=== PATIENT | female | born 1940 | race African-American/Black ===

== ENCOUNTER 2017-02-02 19:08 | Emergency (ER) | payer OTHER ==
[~2017-02-02] VITALS: Ht 165.1 cm; Wt 117.0 kg
[2017-02-02] MEDS ORDERED: KETOROLAC 60MG/2ML VIAL IM ONE (21:45)
[2017-02-02] MEDS ORDERED: AMLODIPINE 5MG TABLET PO ONE (21:45)
[2017-02-02 22:10] VITALS: BP 167/91
== END 2017-02-02 23:57 | disposition home or self-care (01) ==
LOC: ER 21:14
DX: M19.90 Unspecified osteoarthritis, unspecified site (principal); I10 Essential (primary) hypertension
CPT/HCPCS: 96372; 99283; J1885

== ENCOUNTER 2018-04-20 20:28 | Emergency (ER) | payer OTHER ==
[~2018-04-20] VITALS: Ht 165.1 cm; Wt 119.0 kg
[2018-04-20] MEDS ORDERED: KETOROLAC 60MG/2ML VIAL IM ONE (21:15)
[2018-04-20] MEDS ORDERED: ACETAMINOPHEN WITH CODEINE 300/30MG TABLET PO ONE (21:15)
[2018-04-20 23:16] VITALS: BP 118/60
== END 2018-04-21 02:20 | disposition home or self-care (01) ==
LOC: ER 20:30
DX: M25.512 Pain in left shoulder (principal); M19.012 Primary osteoarthritis, left shoulder; I10 Essential (primary) hypertension; Z90.710 Acquired absence of both cervix and uterus
CPT/HCPCS: 73030; 93005; 96372; 99284; J1885

== ENCOUNTER 2019-04-21 11:08 | Emergency (ER) | payer OTHER ==
[~2019-04-21] VITALS: Ht 165.1 cm; Wt 125.5 kg
[2019-04-21] MEDS ORDERED: HYDROCODONE/ACETAMINOPHEN 5/325MG TABLET PO ONE (12:00)
[2019-04-21] MEDS ORDERED: IBUPROFEN 800MG TABLET PO ONE (12:00)
[2019-04-21 14:41] LABS: CLARITY URINE CLOUDY (CLEAR); COLOR URINE YELLOW (YELLOW); KETONES URINE NEGATIVE (NEGATIVE); LEUKOCYTE ESTERASE URINE NEGATIVE (NEGATIVE); NITRITE URINE NEGATIVE (NEGATIVE); OCCULT BLOOD URINE NEGATIVE (NEGATIVE); PH URINE 5.5 (4.5-8.0); PROTEIN URINE NEGATIVE (NEGATIVE); SPECIFIC GRAVITY URINE 1.019 (1.005-1.030); UROBILINOGEN URINE 0.2 E.U./dL (0.2-1.0)
[2019-04-21 15:33] VITALS: BP 164/78
== END 2019-04-21 15:37 | disposition home or self-care (01) ==
LOC: ER 11:08
DX: M54.5 Low back pain (principal); R10.9 Unspecified abdominal pain; I10 Essential (primary) hypertension; Z90.710 Acquired absence of both cervix and uterus
CPT/HCPCS: 99283

== ENCOUNTER 2019-05-08 14:45 | Emergency (ER) | payer OTHER ==
[~2019-05-08] VITALS: Ht 167.6 cm; Wt 118.0 kg
[2019-05-08] MEDS ORDERED: OXYCODONE HCL/ACETAMINOPHEN 5/325MG TABLET PO ONE (17:30)
[2019-05-08 18:04] VITALS: BP 147/76
== END 2019-05-08 18:08 | disposition home or self-care (01) ==
LOC: ER 14:45
DX: M19.90 Unspecified osteoarthritis, unspecified site (principal); I10 Essential (primary) hypertension; Z90.710 Acquired absence of both cervix and uterus
CPT/HCPCS: 73560; 73600; 99283

== ENCOUNTER 2019-07-15 16:21 | Emergency (ER) | payer OTHER ==
[~2019-07-15] VITALS: Ht 165.1 cm; Wt 121.0 kg
[2019-07-15] MEDS: MORPHINE SULFATE 4 MG/ML CPJ (NOT FOR IM USE) IV STA (18:56)
[2019-07-15] MEDS: ONDANSETRON HCL 4MG/2ML INJ IV STA (18:56)
[2019-07-15] MEDS: SODIUM CHLORIDE 0.9% 1,000 ML IV ONE (18:56)
[2019-07-15 19:22] LABS: BASOPHILS % 0.7 % (0.0-2.0); EOSINOPHILS % 0.1 % (0.0-5.0); HEMATOCRIT. 41.4 % (36.0-48.0); HEMOGLOBIN. 13.3 g/dL (12.0-16.0); LYMPHOCYTES % 11.2 % (20.0-50.0); MEAN CORPUSCULAR HEMOGLOBIN 26.2 pg (28.0-32.0); MEAN CORPUSCULAR VOLUME 81.7 fL (81.0-99.0); MEAN PLATELET VOLUME 8.8 fl (7.4-10.4); PLATELET 276 x1000/uL (130-400); RED BLOOD CELL COUNT 5.06 mill/uL (4.2-5.4); RED CELL DISTRIBUTION WIDTH 15.5 % (11.6-14.6)
[2019-07-15 19:26] LABS: CHLORIDE 101 mEq/L (98-107)
[2019-07-15 20:02] LABS: CLARITY URINE CLOUDY (CLEAR); COLOR URINE DARK YELLOW (YELLOW); KETONES URINE TRACE (NEGATIVE); LEUKOCYTE ESTERASE URINE TRACE (NEGATIVE); NITRITE URINE NEGATIVE (NEGATIVE); OCCULT BLOOD URINE NEGATIVE (NEGATIVE); PROTEIN URINE 1+ (NEGATIVE); SPECIFIC GRAVITY URINE 1.023 (1.005-1.030)
[2019-07-15] MEDS: POTASSIUM CHLORIDE 20MEQ TABLET SR PO ONE (22:42)
[2019-07-15] MEDS: CEFTRIAXONE 1 G PREMIX 50 ML IV ONE (22:42)
[2019-07-15 23:51] VITALS: BP 145/72
== END 2019-07-16 00:38 | disposition home or self-care (01) ==
LOC: ER 16:21
DX: N10 Acute pyelonephritis (principal); M19.90 Unspecified osteoarthritis, unspecified site; I10 Essential (primary) hypertension; E87.6 Hypokalemia; N28.9 Disorder of kidney and ureter, unspecified; Z90.710 Acquired absence of both cervix and uterus
CPT/HCPCS: 36415; 71045; 72100; 73502; 80053; 81003; 85025; 87086; 93005; 96365; 96375; 99284; J0696; J2270; J2405; J7030

== ENCOUNTER 2019-08-01 01:04 | Emergency (ER) | payer OTHER ==
[~2019-08-01] VITALS: Ht 167.6 cm; Wt 143.0 kg
[2019-08-01] MEDS ORDERED: KETOROLAC 60MG/2ML VIAL IM ONE (02:15)
[2019-08-01] MEDS ORDERED: HYDROCODONE/ACETAMINOPHEN 10/325MG TABLET PO ONE (02:15)
[2019-08-01 02:45] VITALS: BP 163/89
== END 2019-08-01 04:06 | disposition home or self-care (01) ==
LOC: ER 01:04
DX: M19.90 Unspecified osteoarthritis, unspecified site (principal); G89.29 Other chronic pain; I10 Essential (primary) hypertension; M10.9 Gout, unspecified; Z90.710 Acquired absence of both cervix and uterus
CPT/HCPCS: 96372; 99283; J1885

== ENCOUNTER 2019-09-11 01:23 | Emergency (ER) | payer OTHER ==
[~2019-09-11] VITALS: Ht 167.6 cm; Wt 127.5 kg
[2019-09-11] MEDS ORDERED: KETOROLAC 30MG/ML VIAL IV STA (03:05)
[2019-09-11] MEDS ORDERED: ONDANSETRON HCL 4MG/2ML INJ IV STA (03:05)
[2019-09-11 03:35] LABS: BASOPHILS % 1.1 % (0.0-2.0); EOSINOPHILS % 1.4 % (0.0-5.0); HEMATOCRIT. 40.3 % (36.0-48.0); HEMOGLOBIN. 13.1 g/dL (12.0-16.0); LYMPHOCYTES % 16.5 % (20.0-50.0); MEAN CORPUSCULAR HEMOGLOBIN 26.6 pg (28.0-32.0); MEAN CORPUSCULAR VOLUME 82.1 fL (81.0-99.0); MEAN PLATELET VOLUME 8.2 fl (7.4-10.4); MONOCYTES % 8.7 % (2.0-8.0); NEUTROPHILS % 72.3 % (40.0-76.0); PLATELET 313 x1000/uL (130-400); RED BLOOD CELL COUNT 4.92 mill/uL (4.2-5.4); RED CELL DISTRIBUTION WIDTH 14.7 % (11.6-14.6)
[2019-09-11 03:46] LABS: CHLORIDE 102 mEq/L (98-107)
[2019-09-11 05:21] VITALS: BP 148/92
== END 2019-09-11 05:23 | disposition home or self-care (01) ==
LOC: ER 01:23
DX: M54.9 Dorsalgia, unspecified (principal); M54.30 Sciatica, unspecified side; K76.89 Other specified diseases of liver; I10 Essential (primary) hypertension; Z78.0 Asymptomatic menopausal state; Z98.51 Tubal ligation status
CPT/HCPCS: 36415; 74176; 80053; 83605; 83690; 85025; 96374; 96375; 99284; J1885; J2405

== ENCOUNTER 2020-08-26 13:22 | Emergency (ER) | payer OTHER, MEDICAID ==
[~2020-08-26] VITALS: Ht 182.9 cm; Wt 137.0 kg
[2020-08-26] MEDS ORDERED: ACETAMINOPHEN 500MG TABLET PO ONE (15:45)
[2020-08-26 17:28] VITALS: BP 162/90
== END 2020-08-26 17:29 | disposition home or self-care (01) ==
LOC: ER 13:22
DX: M54.32 Sciatica, left side (principal); M54.31 Sciatica, right side; G89.29 Other chronic pain; I10 Essential (primary) hypertension; M19.90 Unspecified osteoarthritis, unspecified site; M10.9 Gout, unspecified; Z90.49 Acquired absence of other specified parts of digestive tract; Z98.51 Tubal ligation status
CPT/HCPCS: 72100; 99283

== ENCOUNTER 2020-11-25 00:15 | Inpatient (IN) | payer OTHER, MEDICAID ==
[~2020-11-25] VITALS: Ht 162.6 cm; Wt 140.7 kg
[2020-11-25] VITALS (36 sets, daily range): BP systolic 110–158; BP diastolic 64–98
[2020-11-25] MEDS ORDERED: MORPHINE SULFATE 4 MG/ML CPJ (NOT FOR IM USE) IV STA (00:41)
[2020-11-25] MEDS ORDERED: ONDANSETRON HCL 4MG/2ML INJ IV STA (00:41)
[2020-11-25] MEDS ORDERED: PROPOFOL 10MG/ML 100ML 100 ML IV ONE (00:45)
[2020-11-25 00:47] LABS: BG BASE EXCESS -1.1 mmol/L (-2.0-2.0); BG CARBOXYHEMOGLOBIN 1.1 % (0.5-1.5); BG DEOXYHEMOGLOBIN 0.3 % (0.0-5.0); BG FRACTION INSPIRED OXYGEN 100; BG HCO3 ACT 24.7 mmol/L (22.0-26.0); BG METHEMOGLOBIN 0.3 % (0.0-1.5); BG OXYGEN SATURATION 99.7 % (92.0-98.5); BG OXYHEMOGLOBIN 98.3 % (94.0-97.0); BG PCO2 45.2 mmHg (35.0-45.0); BG PH 7.355 (7.350-7.450); BG PO2 367.9 mmHg (75.0-100.0); BG TOTAL HEMOGLOBIN 12.7 g/dL (12.0-18.0); BG TOTAL RESPIRATORY RATE 20 b/min; BG VENT MODE VENT - AC
[2020-11-25] MEDS ORDERED: NOREPINEPHRINE 8MG/250ML PMX 250 ML IV STA (00:54)
[2020-11-25] MEDS ORDERED: CALCIUM CHLORIDE 1GM/10ML SYR IV ONE (01:00)
[2020-11-25] MEDS ORDERED: SODIUM BICARBONATE 8.4% 1 MEQ/ML 50ML SYR IV ONE ×2 (01:00→09:30)
[2020-11-25] MEDS ORDERED: EPINEPHRINE 0.1MG/ML (1:10,000) 10ML SYR ONE ×2 (01:00→09:30)
[2020-11-25 01:28] LABS: BASOPHILS % 0.8 % (0.0-2.0); CHLORIDE 101 mEq/L (98-107); EOSINOPHILS % 0.1 % (0.0-5.0); HEMATOCRIT. 38.9 % (36.0-48.0); HEMOGLOBIN. 11.6 g/dL (12.0-16.0); LYMPHOCYTES % 36.1 % (20.0-50.0); MEAN CORPUSCULAR HEMOGLOBIN 25.3 pg (28.0-32.0); MEAN CORPUSCULAR VOLUME 84.7 fL (81.0-99.0); MEAN PLATELET VOLUME 8.8 fl (7.4-10.4); MONOCYTES % 8.5 % (2.0-8.0); NEUTROPHILS % 54.5 % (40.0-76.0); PLATELET 188 x1000/uL (130-400); RED BLOOD CELL COUNT 4.59 mill/uL (4.2-5.4); RED CELL DISTRIBUTION WIDTH 16.6 % (11.6-14.6)
[2020-11-25] MEDS: NOREPINEPHRINE 8 MG in DEXTROSE 5% WATER 250 ML IV PRN ×2 (01:36→13:51)
[2020-11-25 01:51] LABS: D-DIMER 3.51 mg/L FEU (<0.50); INR 1.1
[2020-11-25] MEDS ORDERED: DEXTROSE 50% WATER 50ML SYRINGE IV ONE (09:30)
[2020-11-25] MEDS: PROPOFOL 10MG/ML 100ML 100 ML IV NR ×4 (09:51→19:53)
[2020-11-25 10:14] LABS: BG CARBOXYHEMOGLOBIN 0.6 % (0.5-1.5); BG DEOXYHEMOGLOBIN 0.5 % (0.0-5.0); BG FRACTION INSPIRED OXYGEN 100; BG HCO3 ACT 27.5 mmol/L (22.0-26.0); BG OXYGEN SATURATION 99.5 % (92.0-98.5); BG OXYHEMOGLOBIN 98.9 % (94.0-97.0); BG PCO2 33.9 mmHg (35.0-45.0); BG PH 7.527 (7.350-7.450); BG PO2 211.7 mmHg (75.0-100.0); BG SAMPLE SITE RIGHT RADIAL; BG TOTAL HEMOGLOBIN 13.6 g/dL (12.0-18.0); BG VENT MODE VENT - AC
[2020-11-25] MEDS ORDERED: FUROSEMIDE 40MG/4ML VIAL IVP NR (11:00)
[2020-11-25] MEDS: ENOXAPARIN 40MG/0.4ML SYR SUBCUT SCH (13:50)
[2020-11-25] MEDS ORDERED: ONDANSETRON HCL 4MG/2ML INJ IV PRN (14:00)
[2020-11-25] MEDS ORDERED: PROPOFOL 10MG/ML 100ML 100 ML IV PRN (17:30)
[2020-11-25] MEDS ORDERED: PIPERACILLIN/TAZOBACTAM 3.375 G in DEXT 5% WATER 100 ML IV SCH (17:30)
[2020-11-25] MEDS ORDERED: IPRATROPIUM/ALBUTEROL 0.5-3(2.5)MG/3ML NEB HHN PRN (17:30)
[2020-11-25 19:39] LABS: CLARITY URINE CLOUDY (CLEAR); COLOR URINE YELLOW (YELLOW); KETONES URINE NEGATIVE (NEGATIVE); LEUKOCYTE ESTERASE URINE TRACE (NEGATIVE); NITRITE URINE NEGATIVE (NEGATIVE); OCCULT BLOOD URINE 2+ (NEGATIVE); PROTEIN URINE TRACE (NEGATIVE); UROBILINOGEN URINE 0.2 E.U./dL (0.2-1.0)
[2020-11-25] MEDS: IPRATROPIUM/ALBUTEROL 0.5-3(2.5)MG/3ML NEB HHN SCH (19:52)
[2020-11-25] MEDS ORDERED: FENTANYL CITRATE/PF 2,500 MCG in SODIUM CHLORIDE 0.9% 200 ML IV PRN (20:00)
[2020-11-25 20:22] LABS: *AMPHETAMINES SCREEN URINE NEGATIVE (NEGATIVE); *BARBITURATES SCREEN URINE NEGATIVE (NEGATIVE); CANNABINOID URINE SCREEN NEGATIVE (NEGATIVE); METHADONE URINE SCREEN NEGATIVE (NEGATIVE); OPIATES URINE SCREEN PRESUMTIVE POSITIVE (NEGATIVE); PHENCYCLIDINE URINE SCREEN NEGATIVE (NEGATIVE)
[2020-11-25 20:23] LABS: *BENZODIAZEPINES SCREEN URINE NEGATIVE (NEGATIVE); *COCAINE SCREEN URINE NEGATIVE (NEGATIVE)
[2020-11-25] MEDS: PIPERACILLIN/TAZOBACTAM 2.25 G in DEXTROSE 5% WATER 50 ML IV SCH (21:02)
[2020-11-26] VITALS (79 sets, daily range): BP systolic 64–177; BP diastolic 43–106
[2020-11-26] MEDS: IPRATROPIUM/ALBUTEROL 0.5-3(2.5)MG/3ML NEB HHN SCH ×4 (01:42→20:47)
[2020-11-26] MEDS: PIPERACILLIN/TAZOBACTAM 2.25 G in DEXTROSE 5% WATER 50 ML IV SCH ×4 (02:38→20:39)
[2020-11-26] MEDS: PROPOFOL 10MG/ML 100ML 100 ML IV NR (03:56)
[2020-11-26] MEDS: ENOXAPARIN 40MG/0.4ML SYR SUBCUT SCH (08:40)
[2020-11-26 09:06] LABS: BG BASE EXCESS 8.6 mmol/L (-2.0-2.0); BG CARBOXYHEMOGLOBIN 0.7 % (0.5-1.5); BG DEOXYHEMOGLOBIN 10.3 % (0.0-5.0); BG FRACTION INSPIRED OXYGEN 100; BG METHEMOGLOBIN 0.1 % (0.0-1.5); BG OXYGEN SATURATION 89.6 % (92.0-98.5); BG OXYHEMOGLOBIN 88.9 % (94.0-97.0); BG PCO2 39.4 mmHg (35.0-45.0); BG PH 7.527 (7.350-7.450); BG PO2 57.3 mmHg (75.0-100.0); BG SAMPLE SITE RIGHT RADIAL; BG TOTAL HEMOGLOBIN 11.8 g/dL (12.0-18.0); BG VENT MODE VENT - AC
[2020-11-26 09:33] LABS: BASOPHILS % 0.9 % (0.0-2.0); EOSINOPHILS % 0.4 % (0.0-5.0); HEMOGLOBIN. 11.2 g/dL (12.0-16.0); LYMPHOCYTES % 13.6 % (20.0-50.0); MEAN CORPUSCULAR HEMOGLOBIN 25.2 pg (28.0-32.0); MEAN CORPUSCULAR VOLUME 80.9 fL (81.0-99.0); MONOCYTES % 12.5 % (2.0-8.0); NEUTROPHILS % 72.6 % (40.0-76.0); RED BLOOD CELL COUNT 4.45 mill/uL (4.2-5.4); RED CELL DISTRIBUTION WIDTH 16.4 % (11.6-14.6)
[2020-11-26 09:41] LABS: CHLORIDE 103 mEq/L (98-107)
[2020-11-26 11:08] LABS: CREATINE KINASE 158 IU/L (26-192)
[2020-11-26] MEDS ORDERED: ENOXAPARIN 100MG/ML SYR SUBCUT NR (11:30)
[2020-11-26] MEDS: FUROSEMIDE 40MG/4ML VIAL IVP SCH (11:57)
[2020-11-26] MEDS: PROPOFOL 10MG/ML 100ML 100 ML IV PRN ×3 (13:30→22:16)
[2020-11-26] MEDS: NOREPINEPHRINE 8 MG in DEXTROSE 5% WATER 250 ML IV PRN (15:14)
[2020-11-27] VITALS (82 sets, daily range): BP systolic 73–146; BP diastolic 41–98
[2020-11-27] MEDS: PIPERACILLIN/TAZOBACTAM 2.25 G in DEXTROSE 5% WATER 50 ML IV SCH ×4 (01:35→21:08)
[2020-11-27] MEDS: IPRATROPIUM/ALBUTEROL 0.5-3(2.5)MG/3ML NEB HHN SCH ×4 (03:06→20:33)
[2020-11-27] MEDS: PROPOFOL 10MG/ML 100ML 100 ML IV PRN ×3 (05:46→21:13)
[2020-11-27 08:34] LABS: BASOPHILS % 0.7 % (0.0-2.0); EOSINOPHILS % 0.5 % (0.0-5.0); HEMATOCRIT. 38.2 % (36.0-48.0); HEMOGLOBIN. 12.1 g/dL (12.0-16.0); LYMPHOCYTES % 11.9 % (20.0-50.0); MEAN CORPUSCULAR HEMOGLOBIN 25.5 pg (28.0-32.0); MEAN CORPUSCULAR VOLUME 80.5 fL (81.0-99.0); MONOCYTES % 14.4 % (2.0-8.0); NEUTROPHILS % 72.5 % (40.0-76.0); RED BLOOD CELL COUNT 4.74 mill/uL (4.2-5.4); RED CELL DISTRIBUTION WIDTH 16.3 % (11.6-14.6)
[2020-11-27 08:37] LABS: CHLORIDE 100 mEq/L (98-107)
[2020-11-27] MEDS: ENOXAPARIN 150MG/ML SYR SUBCUT SCH (10:06)
[2020-11-27] MEDS: FUROSEMIDE 40MG/4ML VIAL IVP SCH (10:06)
[2020-11-27] MEDS ORDERED: POTASSIUM CHLORIDE 20MEQ/PACKET PO NR (10:15)
[2020-11-27] MEDS ORDERED: PROPOFOL 10MG/ML 100ML 100 ML IV PRN (12:30)
[2020-11-27] MEDS: PHENYLEPHRINE 100 MG in DEXT 5% WATER 240 ML IV PRN (21:10)
[2020-11-28] VITALS (91 sets, daily range): BP systolic 52–161; BP diastolic 40–113
[2020-11-28] MEDS: IPRATROPIUM/ALBUTEROL 0.5-3(2.5)MG/3ML NEB HHN SCH ×4 (00:26→20:54)
[2020-11-28] MEDS: PIPERACILLIN/TAZOBACTAM 2.25 G in DEXTROSE 5% WATER 50 ML IV SCH ×4 (03:28→21:10)
[2020-11-28] MEDS: PROPOFOL 10MG/ML 100ML 100 ML IV PRN (03:35)
[2020-11-28 06:56] LABS: HEMATOCRIT. 38.5 % (36.0-48.0); HEMOGLOBIN. 12.3 g/dL (12.0-16.0); MEAN CORPUSCULAR HEMOGLOBIN 25.7 pg (28.0-32.0); MEAN CORPUSCULAR VOLUME 80.8 fL (81.0-99.0); RED BLOOD CELL COUNT 4.77 mill/uL (4.2-5.4); RED CELL DISTRIBUTION WIDTH 16.6 % (11.6-14.6)
[2020-11-28 06:59] LABS: CHLORIDE 101 mEq/L (98-107)
[2020-11-28 07:12] LABS: PHOSPHORUS 5.6 mg/dL (2.5-4.9)
[2020-11-28] MEDS: FUROSEMIDE 40MG/4ML VIAL IVP SCH (08:28)
[2020-11-28] MEDS: ENOXAPARIN 150MG/ML SYR SUBCUT SCH (08:29)
[2020-11-28] MEDS ORDERED: KCL 20MEQ/100ML PREMIX 100 ML IV SCH (10:00)
[2020-11-28 10:08] LABS: ANTI-NUCLEAR ANTIBODIES DIRECT Positive (Negative)
[2020-11-28] MEDS ORDERED: DILTIAZEM HCL 5MG/ML 5ML VIAL IV NR (11:16)
[2020-11-28] MEDS ORDERED: DILTIAZEM HCL 125 MG in DEXT 5% WATER 100 ML IV PRN (11:30)
[2020-11-28 12:05] LABS: BG BASE EXCESS 5.2 mmol/L (-2.0-2.0); BG CARBOXYHEMOGLOBIN 0.8 % (0.5-1.5); BG DEOXYHEMOGLOBIN 13.6 % (0.0-5.0); BG FRACTION INSPIRED OXYGEN 100; BG HCO3 ACT 31.4 mmol/L (22.0-26.0); BG METHEMOGLOBIN 0.2 % (0.0-1.5); BG OXYGEN SATURATION 86.3 % (92.0-98.5); BG OXYHEMOGLOBIN 85.4 % (94.0-97.0); BG PCO2 52.5 mmHg (35.0-45.0); BG PH 7.395 (7.350-7.450); BG PO2 58.2 mmHg (75.0-100.0); BG SAMPLE SITE LEFT RADIAL; BG TOTAL HEMOGLOBIN 14.4 g/dL (12.0-18.0); BG TOTAL RESPIRATORY RATE 14 b/min; BG VENT MODE VENT - AC
[2020-11-28 12:06] LABS: PLATELET 108 x1000/uL (130-400)
[2020-11-28 12:09] LABS: NUCLEATED RED BLOOD CELLS 1 /100 WBC
[2020-11-28 12:10] LABS: PLATELET ESTIMATE NORMAL
[2020-11-28 12:40] LABS: BASOPHILS % 0.8 % (0.0-2.0); EOSINOPHILS % 0.4 % (0.0-5.0); HEMATOCRIT. 44.8 % (36.0-48.0); HEMOGLOBIN. 13.8 g/dL (12.0-16.0); MEAN CORPUSCULAR HEMOGLOBIN 25.6 pg (28.0-32.0); MEAN CORPUSCULAR VOLUME 83.2 fL (81.0-99.0); MONOCYTES % 11.5 % (2.0-8.0); NEUTROPHILS % 67.3 % (40.0-76.0); RED BLOOD CELL COUNT 5.38 mill/uL (4.2-5.4); RED CELL DISTRIBUTION WIDTH 17.1 % (11.6-14.6)
[2020-11-28 12:48] LABS: CHLORIDE 103 mEq/L (98-107)
[2020-11-28 12:53] LABS: PHOSPHORUS 6.6 mg/dL (2.5-4.9)
[2020-11-28] MEDS: PHENYLEPHRINE 100 MG in DEXT 5% WATER 240 ML IV PRN ×2 (13:45→17:56)
[2020-11-28] MEDS: DILTIAZEM HCL 125 MG in DEXT 5% WATER 100 ML IV PRN (15:03)
[2020-11-28] MEDS ORDERED: SODIUM POLYSTYRENE SULFONATE 15 G/60 ML BOT PO NR (17:00)
[2020-11-29] VITALS (98 sets, daily range): BP systolic 73–159; BP diastolic 34–115
[2020-11-29] MEDS: PHENYLEPHRINE 100 MG in DEXT 5% WATER 240 ML IV PRN ×6 (00:35→20:10)
[2020-11-29] MEDS: PIPERACILLIN/TAZOBACTAM 2.25 G in DEXTROSE 5% WATER 50 ML IV SCH ×4 (02:02→20:30)
[2020-11-29] MEDS: IPRATROPIUM/ALBUTEROL 0.5-3(2.5)MG/3ML NEB HHN SCH ×4 (02:30→22:23)
[2020-11-29] MEDS: DILTIAZEM HCL 125 MG in DEXT 5% WATER 100 ML IV PRN ×2 (04:38→11:24)
[2020-11-29 06:18] LABS: BASOPHILS % 0.5 % (0.0-2.0); EOSINOPHILS % 0.2 % (0.0-5.0); HEMOGLOBIN. 12.8 g/dL (12.0-16.0); LYMPHOCYTES % 7.8 % (20.0-50.0); MEAN CORPUSCULAR HEMOGLOBIN 25.4 pg (28.0-32.0); MEAN CORPUSCULAR VOLUME 81.2 fL (81.0-99.0); MONOCYTES % 10.3 % (2.0-8.0); NEUTROPHILS % 81.2 % (40.0-76.0); RED BLOOD CELL COUNT 5.05 mill/uL (4.2-5.4); RED CELL DISTRIBUTION WIDTH 16.6 % (11.6-14.6)
[2020-11-29 06:38] LABS: CHLORIDE 97 mEq/L (98-107)
[2020-11-29] MEDS: FUROSEMIDE 40MG/4ML VIAL IVP SCH (09:21)
[2020-11-29 09:44] LABS: PLATELET ESTIMATE NORMAL
[2020-11-29 11:20] LABS: BG BASE EXCESS 9.4 mmol/L (-2.0-2.0); BG CARBOXYHEMOGLOBIN 0.2 % (0.5-1.5); BG METHEMOGLOBIN 0.5 % (0.0-1.5); BG OXYGEN SATURATION 90.9 % (92.0-98.5); BG OXYHEMOGLOBIN 90.3 % (94.0-97.0); BG PCO2 41.1 mmHg (35.0-45.0); BG PH 7.523 (7.350-7.450); BG PO2 59.9 mmHg (75.0-100.0); BG SAMPLE SITE RIGHT RADIAL; BG TOTAL HEMOGLOBIN 13.3 g/dL (12.0-18.0); BG VENT MODE VENT - AC
[2020-11-29] MEDS: ENOXAPARIN 150MG/ML SYR SUBCUT SCH (11:22)
[2020-11-29] MEDS ORDERED: POTASSIUM CHLORIDE INJ 40 MEQ in DEXT 5% WATER 250 ML IV SCH (12:00)
[2020-11-29] MEDS: DILTIAZEM HCL 60MG TABLET PO SCH ×2 (16:46→21:29)
[2020-11-30] VITALS (63 sets, daily range): BP systolic 60–167; BP diastolic 20–109
[2020-11-30] MEDS: PHENYLEPHRINE 100 MG in DEXT 5% WATER 240 ML IV PRN ×4 (01:04→22:09)
[2020-11-30] MEDS: PIPERACILLIN/TAZOBACTAM 2.25 G in DEXTROSE 5% WATER 50 ML IV SCH ×4 (01:37→21:54)
[2020-11-30] MEDS: IPRATROPIUM/ALBUTEROL 0.5-3(2.5)MG/3ML NEB HHN SCH ×4 (03:24→21:00)
[2020-11-30] MEDS: DILTIAZEM HCL 60MG TABLET PO SCH ×4 (05:36→22:09)
[2020-11-30 05:59] LABS: HEMATOCRIT. 37.6 % (36.0-48.0); HEMOGLOBIN. 11.8 g/dL (12.0-16.0); MEAN CORPUSCULAR HEMOGLOBIN 25.4 pg (28.0-32.0); MEAN CORPUSCULAR VOLUME 81.1 fL (81.0-99.0); MEAN PLATELET VOLUME 9.2 fl (7.4-10.4); PLATELET 119 x1000/uL (130-400); RED BLOOD CELL COUNT 4.64 mill/uL (4.2-5.4); RED CELL DISTRIBUTION WIDTH 16.8 % (11.6-14.6)
[2020-11-30] MEDS: DILTIAZEM HCL 125 MG in DEXT 5% WATER 100 ML IV PRN (06:11)
[2020-11-30] MEDS: FUROSEMIDE 40MG/4ML VIAL IVP SCH (09:06)
[2020-11-30] MEDS: ENOXAPARIN 150MG/ML SYR SUBCUT SCH (09:07)
[2020-11-30 09:38] LABS: BG BASE EXCESS 10.5 mmol/L (-2.0-2.0); BG CARBOXYHEMOGLOBIN 0.3 % (0.5-1.5); BG DEOXYHEMOGLOBIN 19.1 % (0.0-5.0); BG FRACTION INSPIRED OXYGEN 100; BG HCO3 ACT 36.5 mmol/L (22.0-26.0); BG METHEMOGLOBIN 0.3 % (0.0-1.5); BG OXYGEN SATURATION 80.8 % (92.0-98.5); BG OXYHEMOGLOBIN 80.3 % (94.0-97.0); BG PCO2 53.9 mmHg (35.0-45.0); BG PH 7.448 (7.350-7.450); BG PO2 48.8 mmHg (75.0-100.0); BG SAMPLE SITE RIGHT RADIAL; BG TOTAL HEMOGLOBIN 13.2 g/dL (12.0-18.0); BG VENT MODE VENT - AC
[2020-11-30 09:44] LABS: CHLORIDE 98 mEq/L (98-107)
[2020-11-30] MEDS ORDERED: POTASSIUM CHLORIDE INJ 40 MEQ in DEXT 5% WATER 250 ML IV SCH (13:00)
[2020-11-30 13:31] LABS: PLATELET ESTIMATE DECREASED
[2020-12-01] VITALS (75 sets, daily range): BP systolic 60–163; BP diastolic 27–106
[2020-12-01] MEDS: IPRATROPIUM/ALBUTEROL 0.5-3(2.5)MG/3ML NEB HHN SCH ×4 (03:18→20:55)
[2020-12-01] MEDS: DILTIAZEM HCL 60MG TABLET PO SCH ×3 (05:52→22:11)
[2020-12-01] MEDS: PHENYLEPHRINE 100 MG in DEXT 5% WATER 240 ML IV PRN ×2 (05:55→16:40)
[2020-12-01 07:58] LABS: BG BASE EXCESS 4.8 mmol/L (-2.0-2.0); BG CARBOXYHEMOGLOBIN 0.8 % (0.5-1.5); BG DEOXYHEMOGLOBIN 6.8 % (0.0-5.0); BG FRACTION INSPIRED OXYGEN 80; BG HCO3 ACT 27.7 mmol/L (22.0-26.0); BG METHEMOGLOBIN 0.2 % (0.0-1.5); BG OXYGEN SATURATION 93.1 % (92.0-98.5); BG OXYHEMOGLOBIN 92.2 % (94.0-97.0); BG PH 7.516 (7.350-7.450); BG PO2 65.8 mmHg (75.0-100.0); BG SAMPLE SITE RIGHT RADIAL; BG TOTAL HEMOGLOBIN 12.7 g/dL (12.0-18.0); BG VENT MODE VENT - AC
[2020-12-01] MEDS: FUROSEMIDE 40MG/4ML VIAL IVP SCH (08:57)
[2020-12-01] MEDS: ENOXAPARIN 150MG/ML SYR SUBCUT SCH (08:59)
[2020-12-01] MEDS: ACETAMINOPHEN 325MG TABLET PO PRN (20:12)
[2020-12-02] VITALS (92 sets, daily range): BP systolic 66–154; BP diastolic 21–111
[2020-12-02] MEDS: IPRATROPIUM/ALBUTEROL 0.5-3(2.5)MG/3ML NEB HHN SCH ×4 (00:28→20:49)
[2020-12-02] MEDS: PHENYLEPHRINE 100 MG in DEXT 5% WATER 240 ML IV PRN ×2 (02:19→23:39)
[2020-12-02] MEDS: DILTIAZEM HCL 60MG TABLET PO SCH ×3 (05:28→21:10)
[2020-12-02 07:21] LABS: HEMATOCRIT. 35.2 % (36.0-48.0); MEAN CORPUSCULAR HEMOGLOBIN 25.2 pg (28.0-32.0); MEAN CORPUSCULAR VOLUME 81.1 fL (81.0-99.0); MEAN PLATELET VOLUME 9.7 fl (7.4-10.4); PLATELET 156 x1000/uL (130-400); RED BLOOD CELL COUNT 4.34 mill/uL (4.2-5.4); RED CELL DISTRIBUTION WIDTH 16.7 % (11.6-14.6)
[2020-12-02] MEDS: FUROSEMIDE 40MG/4ML VIAL IVP SCH (09:23)
[2020-12-02] MEDS: ENOXAPARIN 150MG/ML SYR SUBCUT SCH (09:23)
[2020-12-02] MEDS ORDERED: POTASSIUM CHLORIDE 20MEQ/PACKET PO SCH (09:30)
[2020-12-02 10:31] LABS: BG BASE EXCESS 8.9 mmol/L (-2.0-2.0); BG CARBOXYHEMOGLOBIN 0.5 % (0.5-1.5); BG DEOXYHEMOGLOBIN 17.6 % (0.0-5.0); BG FRACTION INSPIRED OXYGEN 80; BG HCO3 ACT 33.5 mmol/L (22.0-26.0); BG METHEMOGLOBIN 0.3 % (0.0-1.5); BG OXYGEN SATURATION 82.3 % (92.0-98.5); BG OXYHEMOGLOBIN 81.6 % (94.0-97.0); BG PCO2 46.5 mmHg (35.0-45.0); BG PH 7.476 (7.350-7.450); BG PO2 48.5 mmHg (75.0-100.0); BG SAMPLE SITE LEFT RADIAL; BG TOTAL HEMOGLOBIN 11.6 g/dL (12.0-18.0); BG TOTAL RESPIRATORY RATE 19 b/min; BG VENT MODE VENT - AC
[2020-12-02] MEDS ORDERED: MORPHINE SULFATE 250 MG in DEXT 5% WATER 240 ML IV PRN (13:30)
[2020-12-02] MEDS ORDERED: MORPHINE SULFATE 2 MG/ML CPJ (NOT FOR IM USE) IV SCH (13:30)
[2020-12-02 14:32] LABS: PLATELET ESTIMATE NORMAL
[2020-12-03] VITALS (96 sets, daily range): BP systolic 49–146; BP diastolic 27–105
[2020-12-03] MEDS: IPRATROPIUM/ALBUTEROL 0.5-3(2.5)MG/3ML NEB HHN SCH ×4 (02:33→22:23)
[2020-12-03] MEDS: DILTIAZEM HCL 60MG TABLET PO SCH ×3 (05:29→21:12)
[2020-12-03 06:20] LABS: HEMATOCRIT. 34.9 % (36.0-48.0); MEAN CORPUSCULAR HEMOGLOBIN 25.6 pg (28.0-32.0); MEAN CORPUSCULAR VOLUME 81.2 fL (81.0-99.0); MEAN PLATELET VOLUME 10.5 fl (7.4-10.4); PLATELET 252 x1000/uL (130-400)
[2020-12-03] MEDS: FUROSEMIDE 40MG/4ML VIAL IVP SCH (09:22)
[2020-12-03] MEDS: ENOXAPARIN 150MG/ML SYR SUBCUT SCH (09:23)
[2020-12-03 10:30] LABS: BG CARBOXYHEMOGLOBIN 0.3 % (0.5-1.5); BG DEOXYHEMOGLOBIN 11.5 % (0.0-5.0); BG FRACTION INSPIRED OXYGEN 100; BG HCO3 ACT 33.2 mmol/L (22.0-26.0); BG METHEMOGLOBIN 0.3 % (0.0-1.5); BG OXYGEN SATURATION 88.4 % (92.0-98.5); BG OXYHEMOGLOBIN 87.9 % (94.0-97.0); BG PCO2 44.1 mmHg (35.0-45.0); BG PH 7.495 (7.350-7.450); BG PO2 56.8 mmHg (75.0-100.0); BG SAMPLE SITE RIGHT RADIAL; BG VENT MODE VENT - AC
[2020-12-03 13:32] LABS: NUCLEATED RED BLOOD CELLS 2 /100 WBC
[2020-12-03 13:33] LABS: PLATELET ESTIMATE NORMAL
[2020-12-03] MEDS: PHENYLEPHRINE 100 MG in DEXT 5% WATER 240 ML IV PRN (14:17)
[2020-12-03 18:38] LABS: PHOSPHORUS 4.6 mg/dL (2.5-4.9)
[2020-12-04] VITALS (94 sets, daily range): BP systolic 50–152; BP diastolic 21–95
[2020-12-04] MEDS: IPRATROPIUM/ALBUTEROL 0.5-3(2.5)MG/3ML NEB HHN SCH ×3 (02:39→21:23)
[2020-12-04] MEDS: PHENYLEPHRINE 100 MG in DEXT 5% WATER 240 ML IV PRN ×2 (05:40→18:29)
[2020-12-04] MEDS: DILTIAZEM HCL 60MG TABLET PO SCH ×3 (05:41→22:39)
[2020-12-04 07:02] LABS: HEMATOCRIT. 35.8 % (36.0-48.0); HEMOGLOBIN. 11.3 g/dL (12.0-16.0); MEAN CORPUSCULAR HEMOGLOBIN 25.9 pg (28.0-32.0); MEAN CORPUSCULAR VOLUME 82.3 fL (81.0-99.0); MEAN PLATELET VOLUME 10.1 fl (7.4-10.4); PLATELET 322 x1000/uL (130-400); RED BLOOD CELL COUNT 4.35 mill/uL (4.2-5.4); RED CELL DISTRIBUTION WIDTH 16.9 % (11.6-14.6)
[2020-12-04] MEDS: ENOXAPARIN 150MG/ML SYR SUBCUT SCH (09:46)
[2020-12-04] MEDS: LORAZEPAM 2MG/ML CPJ IV PRN ×2 (09:47→20:07)
[2020-12-04] MEDS: FUROSEMIDE 40MG/4ML VIAL IVP SCH (09:47)
[2020-12-04 09:57] LABS: BG BASE EXCESS 7.7 mmol/L (-2.0-2.0); BG DEOXYHEMOGLOBIN 20.6 % (0.0-5.0); BG FRACTION INSPIRED OXYGEN 100; BG HCO3 ACT 32.4 mmol/L (22.0-26.0); BG OXYGEN SATURATION 79.4 % (92.0-98.5); BG OXYHEMOGLOBIN 79.4 % (94.0-97.0); BG PCO2 45.9 mmHg (35.0-45.0); BG PH 7.467 (7.350-7.450); BG PO2 45.6 mmHg (75.0-100.0); BG SAMPLE SITE RIGHT RADIAL; BG TOTAL HEMOGLOBIN 12.5 g/dL (12.0-18.0); BG TOTAL RESPIRATORY RATE 22 b/min; BG VENT MODE VENT - AC
[2020-12-04] MEDS ORDERED: DIGOXIN 500MCG/2ML AMP IV ONE (12:45)
[2020-12-04] MEDS: DIGOXIN 500MCG/2ML AMP IV SCH ×3 (13:20→19:00)
[2020-12-04] MEDS: DILTIAZEM HCL 125 MG in DEXT 5% WATER 100 ML IV PRN (17:49)
[2020-12-04 21:47] LABS: BG BASE EXCESS 1.7 mmol/L (-2.0-2.0); BG CARBOXYHEMOGLOBIN 0.8 % (0.5-1.5); BG DEOXYHEMOGLOBIN 41.1 % (0.0-5.0); BG FRACTION INSPIRED OXYGEN 100; BG HCO3 ACT 28.9 mmol/L (22.0-26.0); BG METHEMOGLOBIN 0.2 % (0.0-1.5); BG OXYGEN SATURATION 58.5 % (92.0-98.5); BG OXYHEMOGLOBIN 57.9 % (94.0-97.0); BG PCO2 56.8 mmHg (35.0-45.0); BG PH 7.325 (7.350-7.450); BG PO2 36.2 mmHg (75.0-100.0); BG SAMPLE SITE LEFT RADIAL; BG TOTAL HEMOGLOBIN 13.8 g/dL (12.0-18.0); BG VENT MODE VENT - AC
[2020-12-04] MEDS ORDERED: DIGOXIN 500MCG/2ML AMP IV SCH (22:30)
[2020-12-05] VITALS (19 sets, daily range): BP systolic 83–158; BP diastolic 48–108
[2020-12-05] MEDS: PHENYLEPHRINE 100 MG in DEXT 5% WATER 240 ML IV PRN (01:17)
[2020-12-05] MEDS: IPRATROPIUM/ALBUTEROL 0.5-3(2.5)MG/3ML NEB HHN SCH (02:39)
[2020-12-05] MEDS: ACETAMINOPHEN 325MG TABLET PO PRN (04:07)
[2020-12-05] MEDS: DILTIAZEM HCL 60MG TABLET PO SCH (05:13)
[2020-12-05] MEDS: DILTIAZEM HCL 125 MG in DEXT 5% WATER 100 ML IV PRN (05:14)
[2020-12-05 21:27] LABS: PLATELET ESTIMATE NORMAL
== END 2020-12-05 09:25 | disposition expired | DRG 870 ==
LOC: ER 00:15 → EDUNIT# 00:15 → EDBD 00:15 → CVICU 00:16 → EDBEDREQ 02:17 → ENRESERV 09:07 → 5EST 11-26 05:32
PROVIDERS: ADMIT Internal Medicine; ATTEND Internal Medicine
PROC: 5A1955Z Respiratory Ventilation, Greater than 96 Consecutive Hours (ICD-10-PCS; principal; 2020-11-25)
PROC: 5A12012 Performance of Cardiac Output, Single, Manual (ICD-10-PCS; 2020-11-25)
PROC: 0BH18EZ Insertion of Endotracheal Airway into Trachea, Via Natural or Artificial Opening Endoscopic (ICD-10-PCS; 2020-11-25)
PROC: 06HY33Z Insertion of Infusion Device into Lower Vein, Percutaneous Approach (ICD-10-PCS; 2020-11-25)
DX: A41.9 Sepsis, unspecified organism (principal); J96.01 Acute respiratory failure with hypoxia; I21.4 Non-ST elevation (NSTEMI) myocardial infarction; G93.41 Metabolic encephalopathy; N17.0 Acute kidney failure with tubular necrosis; R65.21 Severe sepsis with septic shock; I50.21 Acute systolic (congestive) heart failure; I42.9 Cardiomyopathy, unspecified; E87.2 Acidosis; I13.0 Hypertensive heart and chronic kidney disease with heart failure and stage 1 through stage 4 chronic kidney disease, or unspecified chronic kidney disease; I47.2 Ventricular tachycardia; Z68.43 Body mass index [BMI] 50.0-59.9, adult; I46.9 Cardiac arrest, cause unspecified; E66.01 Morbid (severe) obesity due to excess calories; N18.9 Chronic kidney disease, unspecified; I27.29 Other secondary pulmonary hypertension; E87.6 Hypokalemia; I07.1 Rheumatic tricuspid insufficiency; I48.91 Unspecified atrial fibrillation; Z20.822 Contact with and (suspected) exposure to COVID-19; Z51.5 Encounter for palliative care; Z66 Do not resuscitate; Z90.711 Acquired absence of uterus with remaining cervical stump; Z79.899 Other long term (current) drug therapy
CPT/HCPCS: 36415; 36600; 71045; 76770; 78610; 80048; 80053; 80305; 81003; 82375; 82550; 82805; 82962; 83605; 83735; 83880; 84100; 84478; 84484; 85025; 85379; 86038; 86160; 87070; 93005; 93306; 93970; 94002; 94003; 94640; 95816; 99291; A6261; A9512; J1160; J1650; J1940; J2060; J2270; J2370; J2405; J2543; J2704; J3010; J3480; J3490; J7050; J7060; U0003; A4315